=== PATIENT | female | born 1965 | race Caucasian/White ===

== ENCOUNTER 2024-09-17 23:46 | Emergency (ER) | payer SELFPAY ==
--- OUTSIDE RECORDS SUMMARY | 2024-09-17 23:48 | XMS_ITS | Clinical Summary ---
Author Organization [facility] Address [address] [place] [address] Care Team Providers Care Park Guide Name Role Phone Josias Portillo MD Primary Care Provider [phone] Allergies Active Allergy Reactions Criticality Noted Date Comments Seasonal Allergies 02/01/2003 Medications Cholecalciferol (VITAMIN D) 125 MCG (5000 UT) CAPS Take 5,000 Units by mouth daily 100 tablet 3 10/20/2013 Active ibuprofen (ADVIL/MOTRIN) 200 MG tablet Take 200 mg by mouth once as needed for mild pain Active Joppa-3 Fatty Acids (FISH OIL PO) Take 1 capsule by mouth daily Active cyclobenzaprine (FLEXERIL) 10 MG tabletIndicatio ns:Open fracture of multiple ribs of left side, initial encounter Take 1 tablet (10 mg) by mouth 3 times daily 20 tablet 04/01/2020 Active oxyCODONE (ROXICODONE) 5 MG tabletIndicatio ns:Open fracture of multiple ribs of left side, initial encounter Take 1 tablet (5 mg) by mouth every 4 hours as needed for moderate to severe pain 12 tablet 04/01/2020 Active Active Problems Problem Noted Date Diagnosed Date Rib fractures 03/31/2020 Pleural hemorrhage 03/31/2020 Adrenal adenoma, unspecified laterality 03/31/20 20 Closed fracture of multiple ribs of left side, initial encounter 03/31/2020 Fall, initial encounter 03/31/2020 Nephrolithiasis 02/15/2011 Family history of ischemic heart disease 011 CARDIOVASCULAR SCREENING; LDL GOAL LESS THAN 160 03/05/2010 Migraine 10/12/2002 Overview (02/03/2015): Problem list name updated by automated process. Provider to review Immunizations Immunization Administration Dates Next Due TDAP (Adacel,Boostrix) 04/15/2008 Family History Medical History Relation Comments Heart Disease Father 42, unclear C.A.D. Maternal Grandmother Heart Disease Maternal Grandmother has pacemak er C.A.D. Mother 42, Relation Status Comments Brother Alive Father Maternal Grandfather Maternal Grandmother Alive Mother Alive Paternal Grandfather Paternal Grandmother Social History Tobacco Use Types Packs/Day Years Used Date Smoking Tobacco: Never Alcohol Use Standard Drinks/Week Comments No 0 (1 standard drink = 0.6 oz pur e alcohol) wine once in a while PHQ-2 Answer Date Recorded PHQ-2 Score 0 05/13/2018 Adolescent Education Answer Date Record ed Getting School Help Needed Not on file 02/10 Comments No Sex and Gender Information Value Date Recorded Sex Assigned at Not on file Legal Sex Female 3:52 AM SAW FILER Gender Identity Not on file Sexual Orientation Not on file Occupation Industry Job Start Date Job End Date Not on file Not on file Not on file Not on file Last Filed Vital Signs Vital Sign Reading Time Taken Comments Blood Pressure 113/77 04/01/2020 1:54 PM SAW FILER Pulse 88 04/01/2020 1:54 PM SAW FILER Temperature 37 C (98.6 F) 04/01/2020 1:54 PM SAW FILER Respiratory Rate 16 04/01/2020 1:54 PM SAW FILER Oxygen Saturation 99% 04/01/2020 1:54 PM SAW FILER Inhaled Oxygen Concentration - - Weight 63.5 kg (140 lb) 03/31/2020 11:12 AM SAW FILER Height 162.6 cm (5' 4) 03/31/2020 11:12 AM SAW FILER Body Mass Index 24.03 03/31/2020 11:12 AM SAW FILER Plan of Treatment Not on file Advance Directives For more information, please contact: [phone] * Full Code (Latest Code Status on File) Date Activated Date Inactivated Comments 03/31/2020 10:05 PM 04/01/2020 4:44 PM All basic and advanced life-sustaining interventions are performed as appropriate Question Answer Comments Code status determined by: Discussion with patie nt/ legal decision maker Care Teams Park Guide Relationship Specialty Start Date End Date Josias Portillo MD [facility] [address] [address] PCP - General Internal Medicine 03/31/20
--- OUTSIDE RECORDS SUMMARY | 2024-09-17 23:48 | XMS_ITS | Clinical Summary ---
Author Organization [facility] Address [address] [place] [address] Care Team Providers Care Curriculum Specialist Name Role Phone Kaelyn Lockwood MD Primary Care Provider [phone] Kaelyn Lockwood MD Unavailable [phone] Allergies No known active allergies Medications No known medications Family History Medical History Relation Name Comments Cancer-breast Maternal Aunt mothers half sister Relation Name Status Comments Maternal Aunt Social History Tobacco Use Types Packs/Day Years Used Date Smoking Tobacco: Never Smokeless Tobacco: Never Comments No Sex and Gender Information Value Date Recorded Sex Assigned at Not on file Legal Sex Female 5:02 PM CDT Gender Identity Not on file Sexual Orientation Not on file Obstetrics History Last Filed Vital Signs Vital Sign Reading Time Taken Comments Blood Pressure 106/58 03/11/2015 9:36 AM CRUCIBLE FURNACE TENDER Pulse 60 03/11/2015 9:36 AM CRUCIBLE FURNACE TENDER Temperature - - Respiratory Rate - - Oxygen Saturation - - Inhaled Oxygen Concentration - - Weight 61.3 kg (135 lb 3.2 oz) 03/11/2015 9:36 A M CRUCIBLE FURNACE TENDER Height 161.3 cm (5' 3.5) 03/11/2015 9:36 AM CRUCIBLE FURNACE TENDER Body Mass Index 23.57 03/11/2015 9:36 AM CRUCIBLE FURNACE TENDER Plan of Treatment Health Maintenance Due Date Last Done Comments Tdap 10/15/1975 Depression screening for age 12+ 1976 HIV for age 15-65 10/15/1979 BMI (ht and wt on same day) for age 18+ 1982 Hepatitis C screening for age 18-79 1982 Tetanus booster 1984 Pap test for age 21-65 1985 Colonoscopy through age 75 2009 Lipids for age 45-75 2009 Pneumococcal series for age 50+ (1 of 1 - PCV) 015 Zoster (shingles) series for age 50+ (1 of 2) 10/15/19 15 Mammogram for age 45-75 03/11/2016 03/11/2015 COVID-19 vaccine series (1 - 2023- season) Influenza Vaccine (Season Ended) 2025 Procedures Procedure Name Priority Date/Time Associated Diagnosis Comments XR FFDM MAMMO SCREENING BILATERAL SSP (IA) Routine 03/11/2015 9:30 AM CRUCIBLE FURNACE TENDER Other screening mammogram from Last 3 Months or Most Recently Relevant to Health Maintenance Results * XR FFDM MAMMO SCREENING BILATERAL SSP (03/11/2015 9:30 AM CRUCIBLE FURNACE TENDER) Anatomical Region Laterality Modality BREASTS, Breast Left, Breast Right Bilateral Mammography Impressions 03/11/2015 12:02 PM CRUCIBLE FURNACE TENDER There is no radiographic evidence for malignancy. Recommend annual mammograms. A lay language report of this examination will be provided to the patient. MAMMOGRAM ASSESSMENT: ACR 1 Negative Narrative 03/11/2015 12:02 PM CRUCIBLE FURNACE TENDER XR FFDM MAMMO SCREENING BILATERAL SSP [G0202.6] CLINICAL HISTORY: This is an asymptomatic 49 y.o. patient. INDICATION FOR EXAM: Mammogram Screening. TECHNIQUE: CC & MLO views were obtained. This digital study was evaluated with the assistance of Computer-Aided Detection. COMPARISON FILM: Priors not available at the time of this report. FINDINGS: Mammographically, the breast tissue is heterogeneously dense, which could obscure detection of small masses. There are no dominant masses, suspicious micro calcifications or areas of architectural distortion. Kaelyn Lockwood MD MAMMO Final Res ult from Last 3 Months or Most Recently Relevant to Health Maintenance Insurance [employer] [place] [place] [phone] Care Teams Curriculum Specialist Relationship Specialty Start Date End Date Kaelyn Lockwood MD [address] [place] [address] PCP - General Family Practice 02/28/15 Kaelyn oLckwood MD [address] [place] [address] Family Practice 02/28/15
--- OUTSIDE RECORDS SUMMARY | 2024-09-17 23:48 | XMS_ITS | Encounter Summary ---
Author Organization [facility] Address [address] [place] [address] Care Team Providers Care Small Stock Facer Name Role Phone Lisa Kent MD Primary Care Provider + Willam Robertson MD Unavailable [phone] Willam Robertson MD Unavailable [phone] Maria Esther Guzman MD Unavailable Unavailable Willam Robertson MD Unavailable [phone] Maria Esther Guzman MD Unavailable Unavailable Josias Portillo MD Primary Care Provider [phone] Encounter Details Date Type Department Care Team (Late st Contact Info) Description 11/14/2016 [facility] Medical Advice [address] [address] Sherin Candelaria Social History Tobacco Use Types Packs/Day Years Used Date Smoking Tobacco: Never Alcohol Use Standard Drinks/Week Comments No 0 (1 standard drink = 0.6 oz pur e alcohol) wine once in a while Comments No Sex and Gender Information Value Date Recorded Sex Assigned at Not on file Legal Sex Female 3:52 AM SAIL CUTTER Gender Identity Not on file Sexual Orientation Not on file Occupation Industry Job Start Date Job End Date Not on file Not on file Not on file Not on file documented as of this encounter Plan of Treatment Not on file documented as of this encounter Visit Diagnoses Not on filedocumented in this encounter Care Teams Small Stock Facer Relationship Specialty Start Date End Date Lisa Kent MD [address] [address] PCP - General respiratory practitioner 02/16/14 03/30/20 Willam Robertson MD [address] [place] [address] PCP - Assigned PCP 08/19/16 07/08/18 Josias Portillo MD [facility] [address] [facility] [address] [facility] [address] [address] PCP - General Internal Medicine 03/31/20 Willam Robertson MD [address] [place] [address] [place] [address] Assigned PCP 08/19/16 02/21/19 Maria Esther Guzman MD Assigned PCP 02/22/19 05/23/19 Willam Robertson MD [address] [place] [address] Assigned PCP 05/24/19 07/11/19 Maria Esther Guzman MD Assigned PCP 07/12/19 08/15/19 documented as of this encounter
--- OUTSIDE RECORDS SUMMARY | 2024-09-17 23:48 | XMS_ITS | Encounter Summary ---
Author Organization [facility] Address [address] [place] [address] Care Team Providers Care Receiving Inspector Name Role Phone Lisa Kent MD Primary Care Provider + Willam Robertson MD Unavailable [phone] Willam Robertson MD Unavailable [phone] Maria Esther Guzman MD Unavailable Unavailable Willam Robertson MD Unavailable [phone] Maria Esther Guzman MD Unavailable Unavailable Josias Portillo MD Primary Care Provider [phone] Encounter Details Date Type Department Care Team (Late st Contact Info) Description 12/18/2017 [facility] Medical Advice [facility] Centralized Scheduling [facility] [place] [phone] Mariangel Vasquez Social History Tobacco Use Types Packs/Day Years Used Date Smoking Tobacco: Never Alcohol Use Standard Drinks/Week Comments No 0 (1 standard drink = 0.6 oz pur e alcohol) wine once in a while Comments No Sex and Gender Information Value Date Recorded Sex Assigned at Not on file Legal Sex Female 3:52 AM LEATHER PRODUCTS SUPERVISOR Gender Identity Not on file Sexual Orientation Not on file Occupation Industry Job Start Date Job End Date Not on file Not on file Not on file Not on file documented as of this encounter Plan of Treatment Not on file documented as of this encounter Visit Diagnoses Not on filedocumented in this encounter Care Teams Receiving Inspector Relationship Specialty Start Date End Date Lisa Kent MD [address] [place] [address] PCP - General direct sales representative 02/16/14 03/30/20 Willam Robertson MD [address] [place] [address] PCP - Assigned PCP 08/19/16 07/08/18 Josias Portillo MD [facility] [address] [place] [address] PCP - General Internal Medicine 03/31/20 Willam Robertson [facility] [place] [address] [place] [address] Assigned PCP 08/19/16 02/21/19 Maria Esther Guzman MD Assigned PCP 02/22/19 05/23/19 Willam Robertson MD [address] [place] [address] Assigned PCP 05/24/19 07/11/19 Maria Esther Guzman MD Assigned PCP 07/12/19 08/15/19 documented as of this encounter
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
--- OUTSIDE RECORDS SUMMARY | 2024-09-17 23:49 | XMS_ITS ---
Author Name [id number] Address [address] [facility] [address] [address] Organization [facility] Address [address] [facility] [address] [address] Care Team Providers Care Director Insurance Name Role Phone Shree Morillo Unavailable Unavailable Allergies and Adverse Reactions Medication/Group Name Reaction Severity Date No known allergies Plan Date Type Value 04/25/2020 APPOINTMENT GIRL FRIDAY - 66 DISPLACE D RIBS, CT FV - 66 DISPLACED RIBS, CT FV 04/25/2020 APPOINTMENT GIRL FRIDAY - 66 DISPLACE D RIBS - 66 DISPLACED RIBS Reason for Visit GIRL FRIDAY - 66 DISPLACED RIBS - 66 DISPLACED RIBS Encounters Date Name 04/25/2020 Multiple rib fractur es Medications Date Name Route Dose Frequency Instructions Start Date End Date Status Oxycodone Oral ac tive Cyclobenzaprine Oral active Ibuprofen Oral ac tive Problems Diagnosis Status Date of Diagnosi s Multiple rib fractures Active Vital Signs Date Type Value 04/25/2020 Weight 152.00 04/25/2020 Heart Beat 121.00 04/25/2020 Respiratory Rate 16.00 04/25/2020 Oxygen Saturation 95.00 04/25/2020 Body Temperature 97.50 04/25/2020 Pain Scale 4.00 04/25/2020 Height 64.50 04/25/2020 BMI 25.69 04/25/2020 BSA 1.75 04/25/2020 Intravascular Systolic 110 04/25/2020 Intravascular Diastolic 78
--- OUTSIDE RECORDS SUMMARY | 2024-09-17 23:50 | XMS_ITS | Patient Health Record ---
Author Organization [facility] Address [address] [place] [address] Care Team Providers Care Inside Sales Account Representative Name Role Phone None, No PCP Primary Care Provider Keven Payne Flory Unavailable [phone] Allergies No Known Allergies Reason For Referral No Information Immunizations Vaccine Route Administration Date Status Comme nts TDAP VACCINE >7 IM IM Intramuscular 05/08/2022 Administere d Social History Tobacco Use: Social History Observation Description Date Details (start date - stop date) Never Smoker NA - NA Tobacco Use/Smoking Question Answer Notes Are you a nonsmoker Additional Findings: Tobacco Non-User Non-smoker for personal reasons Sexual History Question Answer Notes Had sex in the past 12 months (vaginal, oral, or anal)? Yes with Men only Use protection? No Have you ever had a Sexually transmitted disease ? No Tobacco use other than smoking: Question Answer Notes Are you an other tobacco user? No Problems Problem Type SNOMED Code ICD Code Onset Dates Problem Status W/U Status Risk Notes Problem [id number] Overweight (BMI 25.0-29.9) (E66.3) Active confirmed Problem 813844804 Elevated LDL cholesterol level (E78.00) Active confirmed Problem 59842723 Elevated cholesterol (E78.00) Active confirmed Problem Benign essential hypertension (7864813) Benign essential hypertension (I10) Active confirmed Problem 500367575 Stage 1 hypertension (I10) Active confirmed Plan Of Treatment No Information Insurance Providers Payer Name Payer Address Payer Phone Subscriber Number Group Number Insured Name Patient Relationship to Insured Coverage Start Date Coverage End Date Self Pay [address] [place] [id number] [phone] [id number] Lynda Au Self - patient is the insured Medical (General) History Medical History History ICD Code abnormal pap smear bladder infections Chicken Pox migraines Pneumonia Surgical History Surgery Date(Month/Year) ovarian cyst resection 1989
--- OUTSIDE RECORDS SUMMARY | 2024-09-17 23:50 | XMS_ITS | CCD ---
Author Name Interface, [facility] Address [address] [place] [address] [facility] Address [address] [place] [address] Care Team Providers Care Soyfreeze Operator Name Role Phone Shree Morillo Unavailable Unavailable Allergies and Adverse Reactions Reason for Visit Encounters Medications Problems Social History
[2024-09-17 23:52] VITALS: BP 162/91; PULSE 98; RESP 18; TEMP 36.7; O2SAT 97; BMI 24.1
--- NOTE | 2024-09-17 23:52 | ED_ITS ---
HPI - Abdominal Pain General Chief Complaint: Abdominal Pain Stated Complaint: abdominal pain Time Seen by Provider: 09/17/24 23:48 History of Present Illness HPI narrative: Patient is a 58-year-old woman who has history of gastritis presents with worsening diffuse abdominal pain over the last several days. She did have normal bowel movement earlier today. She really has had no appetite. She is not passing any gas. She has no reflux symptoms. No chest pain no shortness of breath no nausea no vomiting. Patient takes occasional Tagamet but otherwise takes no home medications. She is not able to identify any other aggravating or alleviating factors. Pain is moderate and a burning. Related Data Home Medications ?Medication ?Instructions ?Recorded ?Confirmed No Known Home Medications 09/17/24 09/17/24 Allergies Allergy/AdvReac Type Severity Reaction Status Date / Time No Known Drug Allergies Allergy Verified 09/17/24 23:54 Review of Systems Status of ROS Reports: 10 or more systems reviewed and unremarkable except as noted in History and below [facility] Medical History (Updated 09/18/24 @ 01:03 by Stephon Kessler MD) Kidney stones ?N20.0 - Calculus of kidney (ICD-10) Gastritis ?K29.70 - Gastritis, unspecified, without bleeding (ICD-10) Surgical History (Updated 09/18/24 @ 00:09 by Huan Burroughs RN) History of laparoscopy ?Z98.890 - Other specified postprocedural states (ICD-10) History of shoulder surgery ?Z98.890 - Other specified postprocedural states (ICD-10) Social History Smoking Status: Never smoker Second hand tobacco smoke exposure: No How often do you have a drink containing alcohol: never AUDIT-C Alcohol total score: 0 Non-prescribed substance use: denies use Exam Narrative: Exam Narrative: EXAM GENERAL: Patient appears comfortable and well. EYES: No scleral icterus. LYMPH: No supraclavicular or cervical lymphadenopathy. SKIN: Visible skin seen during exam normal or with benign process only. EXT: No dependent lower extremity pedal edema. HEART: Regular rate and rhythm with no murmurs, rubs, or gallops. LUNGS: Clear to auscultation bilaterally with no crackles or wheezes. ABD: Soft, non tender, non distended. PSYCH: Good eye contact, speech is not pressured. Const: Vital Signs, click to edit/add: Vital Signs - 24 hr 09/17/24 23:52 Temperature 98.1 F Pulse Rate [Pulse Oximeter] 98 Respiratory Rate 18 Blood Pressure [Le ft Upper Arm] 162/91 H Pulse Oximetry 97 Oxygen Delivery Me thod Room Air Course Course ED Course: IV started. CT abdomen pelvis with IV contrast CBC comprehensive metabolic panel lipase UA pending. Vital Signs Vital signs: Initial Vital Signs Temperature 98.1 F 09/17/24 23:52 Temperature Source Temporal Artery Scan 09/17/24 23:52 Pulse Rate 98 09/17/24 23:52 Respiratory Rate 18 09/17/24 23:52 Blood Pressure 162/91 H 09/17/24 23:52 Blood Pressure Mean 114 H 09/17/24 23:52 Blood Pressure Position Sitting 09/17/24 23:52 Pulse Oximetry 97 09/17/24 23:52 Oxygen Delivery Method Room Air 09/17/24 23:52 Vital Signs Temperature 98.1 F 09/17/24 23:52 Pulse Rate 98 09/17/24 23:52 Respiratory Rate 18 09/17/24 23:52 Blood Pressure 162/91 H 09/17/24 23:52 Pulse Oximetry 97 09/17/24 23:52 Oxygen Delivery Method Room Air 09/17/24 23:52 Temperature 98.1 F 09/17/24 23:52 Pulse Rate 98 09/17/24 23:52 Respiratory Rate 18 09/17/24 23:52 Blood Pressure 162/91 H 09/17/24 23:52 Pulse Oximetry 97 09/17/24 23:52 Oxygen Delivery Method Room Air 09/17/24 23:52 MDM - Abdominal Pain MDM Narrative Medical decision making narrative: Pre some presents with abdominal pain diffusely. She has history of gastritis. Workup is unremarkable with the exception of adrenal nodule which will require outpatient follow-up. Patient has normal laboratory studies. At this point the differential diagnosis includes a irritable bowel gastritis gastric ulcer cholecystitis. I did place her on a 2 week course of omeprazole 20 mg 1/2 hour before breakfast. Limit caffeine. Follow-up with her primary physician as needed as well as for follow-up scheduled on the adrenal nodule. Lab Data Labs: Lab Results 09/17/24 09/17/24 Range/Units 00:03 23:55 WBC 8.57 (4.50-11.00) K/uL RBC 4.96 (4.00-5.20) m/uL Hgb 15.4 (12.0-16.0) gm/dL Hct 45.4 (33.0-51.0) % MCV 92 (80-100) fL MCH 31 (26-34) pg MCHC 34 (32-36) gm/dL RDW Coeff of Gabby 12.7 (11.5-15.5) % Plt Count 257 (140-440) K/uL Neut % (Auto) 49.2 (42.0-72.0) % Lymph % (Auto) 39.1 (20-44) % [place] % (Auto) 6.5 (0.0-11.0) % Eos % (Auto) 4.1 (0.0-7.0) % Baso % (Auto) 0.6 (0.0-3.0) % Neut # (Auto) 4.22 (1.7-7.0) K/uL Lymph # (Auto) 3.35 H (0.90-2.90) K/uL [place] # (Auto) 0.60 (0.00-0.90) K/UL Eos # (Auto) 0.35 (0.00-0.50) K/uL Baso # (Auto) 0.05 (0.00-0.30) K/uL Abs Immat Gran (auto) 0.04 (0.00-0.30) K/uL Imm/Tot Granulo (auto) 0.5 % Sodium 141 (135-149) mmol/L Potassium 4.0 (3.6-5.1) mmol/L Chloride 103 (96-114) mmol/L Carbon Dioxide 27 (20-32) mmol/L Anion Gap 11 (7-15) mEq/L BUN 19 (7-30) mg/dL Creatinine 0.9 (0.5-1.5) mg/dL Estimated Creat Clear 60.56 Estimated GFR 74 ml/min Glucose 119 H (60-115) mg/dL Calcium 9.8 (8.4-10.6) mg/dL Total Bilirubin 0.7 (0.1-1.5) mg/dL AST 29 (12-35) U/L ALT 19 (4-35) U/L Alkaline Phosphatase 49 (40-150) U/L Total Protein 7.9 (6.0-8.3) g/dL Albumin 5.0 (3.3-5.0) g/dL Lipase 77 (23-300) U/L Urine Color Yellow (Yellow) Urine Appearance Clear (Clear) Urine pH 7.0 (5.0-8.5) Ur Specific [place] 1.015 (1.000-1.030) Urine Protein Negative (Negative) Urine Glucose (UA) Negative (Negative) Urine Ketones Trace A (Negative) Urine Blood Negative (Negative) Urine Nitrite Negative (Negative) Urine Bilirubin Negative (Negative) Urine Urobilinogen 0.2 (0.2-1.0) Ur Leukocyte Esterase Trace A (Negative) Urine RBC 0-2 (0-2) Urine WBC 0-2 (0-5) Ur Squamous Epith Cells None (None-Few) Urine Bacteria None (None) Discharge Plan Discharge Clinical Impression: Abdominal pain Patient Disposition: Home, Self-Care Condition: Stable Instructions: Abdominal Pain (ED) Additional Instructions: Omeprazole over the counter 20 mg 1/2 hour before breakfast for 2 weeks Follow up with your doctor to discuss adrenal nodule follow up. Activity Level: No Restrictions Discharge Diet: Regular Prescriptions: No Action No Known Home Medications Follow Up/Referrals: Josias Portillo MD [Primary Care Provider] - Stand Alone Forms: [employer] Info Instructions
--- NOTE | 2024-09-18 | CRLHL7_ITS ---
For Patients: As a result of the Cures Act, medical imaging exams and procedure reports are released immediately into your electronic medical record. You may view this report before your referring provider. If you have questions, please contact your health care provider. INDICATION: Abdominal pain TECHNIQUE: CT Abdomen and pelvis with i.v. contrast. Coronal and sagittal reformats were obtained. CONTRAST: 71 mL Isovue 370 COMPARISON: None FINDINGS: Lower chest: Unremarkable. Liver: Unremarkable. Spleen: Unremarkable. Pancreas: Unremarkable. Gallbladder: Unremarkable. Kidney: Unremarkable. No kidney or ureteral stones or obstruction seen. Adrenal: A left adrenal nodule is present measuring 1.2 cm. Bowel: Mild fluid distention of the stomach is noted. The appendix is normal in appearance and size. Vascular: Unremarkable. Lymph: Unremarkable. Peritoneum: Unremarkable. No pneumoperitoneum is seen. No significant ascites is noted. Pelvis: Several coarse calcifications are present in the anterior lower uterine segment which may be due to calcified fibroids. Soft tissue: Unremarkable. Bone: Unremarkable for age. IMPRESSION: 1. A left adrenal nodule is present measuring 1.2 cm. Correlation with patient`s history and laboratory data is recommended to determine the hormone activity level of this lesion. Dictated by Marcin Price MD @ 09/18/2024 12:49:42 AM Please note that all CT scans at this facility use dose modulation, iterative reconstruction, and/or weight-based dosing when appropriate to reduce radiation dose to as low as reasonably achievable. Dictated by: Marcin Price MD @ 09/18/2024 00:53:36 (Electronically Signed)
[2024-09-18 00:12] LABS: Basophils Absolute Auto 0.05 K/uL (0.00-0.30); Basophils Percent Auto 0.6 % (0.0-3.0); Eosinophils Absolute Auto 0.35 K/uL (0.00-0.50); Eosinophils Percent Auto 4.1 % (0.0-7.0); Hematocrit 45.4 % (33.0-51.0); Hemoglobin* 15.4 gm/dL (12.0-16.0); Immature Granulocytes Abs Auto 0.04 K/uL (0.00-0.30); Immature Granulocytes Pct Auto 0.5 %; Lymphocytes Absolute Auto 3.35 K/uL (0.90-2.90); Lymphocytes Percent Auto 39.1 % (20-44); Mean Corpuscular HGB Conc 34 gm/dL (32-36); Mean Corpuscular Hemoglobin 31 pg (26-34); Mean Corpuscular Volume 92 fL (80-100); Monocytes Percent Auto 6.5 % (0.0-11.0); Neutrophils Absolute Auto 4.22 K/uL (1.7-7.0); Neutrophils Percent Auto 49.2 % (42.0-72.0); Platelet Count* 257 K/uL (140-440); RDW Coefficient of Variation % 12.7 % (11.5-15.5); Red Blood Count 4.96 m/uL (4.00-5.20); White Blood Count* 8.57 K/uL (4.50-11.00)
[2024-09-18 00:15] LABS: Appearance Urine Clear (Clear); Bilirubin Urine Negative (Negative); Blood Urine Negative (Negative); Color Urine Yellow (Yellow); Glucose Urine Negative (Negative); Ketones Urine Trace (Negative); Leukocyte Esterase Urine Trace (Negative); Nitrite Urine Negative (Negative); Protein Urine Negative (Negative); Specific Gravity Urine 1.015 (1.000-1.030); Urobilinogen Urine 0.2 (0.2-1.0)
--- OUTSIDE RECORDS SUMMARY | 2024-09-18 00:20 | XMS_ITS | Clinical Summary ---
Author Organization [facility] Address [address] [place] [address] Care Team Providers Care Supervisor Screen Printing Name Role Phone Kaelyn Lockwood MD Primary Care Provider [phone] Kaelyn Lockwood MD Unavailable [phone] Allergies No known active allergies Medications No [...] Comments Blood Pressure 106/58 03/11/2015 9:36 AM BRIDGE PAINTER Pulse 60 03/11/2015 9:36 AM BRIDGE PAINTER Temperature - - Respiratory Rate - - Oxygen Saturation - - Inhaled Oxygen Concentration - - Weight 61.3 kg (135 lb 3.2 oz) 03/11/2015 9:36 A M BRIDGE PAINTER Height 161.3 cm (5' 3.5) 03/11/2015 9:36 AM BRIDGE PAINTER Body Mass Index 23.57 03/11/2015 9:36 AM BRIDGE PAINTER Plan of Treatment Health Maintenance Due Date [...] BILATERAL SSP (IA) Routine 03/11/2015 9:30 AM BRIDGE PAINTER Other screening mammogram from Last 3 Months or Most Recently Relevant to Health Maintenance Results * XR FFDM MAMMO SCREENING BILATERAL SSP (03/11/2015 9:30 AM BRIDGE PAINTER) Anatomical Region Laterality Modality BREASTS, Breast Left, Breast Right Bilateral Mammography Impressions 03/11/2015 12:02 PM BRIDGE PAINTER There is no radiographic evidence for malignancy. Recommend annual mammograms. A lay language report of this examination will be provided to the patient. MAMMOGRAM ASSESSMENT: ACR 1 Negative Narrative 03/11/2015 12:02 PM BRIDGE PAINTER XR FFDM MAMMO SCREENING BILATERAL SSP [G0202.6] [...] Relevant to Health Maintenance Insurance [employer] [place] [phone] Care Teams Supervisor Screen Printing Relationship Specialty Start Date End Date Kaelyn Lockwood MD [address] [place] [address] PCP - General Family Practice 02/28/15 Kaelyn Lockwood MD [address] [place] [address] Family Practice 02/28/15
--- OUTSIDE RECORDS SUMMARY | 2024-09-18 00:21 | XMS_ITS | Clinical Summary ---
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 Gender Identity Not on file Sexual Orientation Not on file Occupation Industry Job Start Date Job End Date Not on file Not on file Not on file Not on file Last Filed Vital Signs Vital Sign Reading Time Taken Comments Blood Pressure 113/77 04/01/2020 1:54 PM OXIDIZED FINISH PLATER Pulse 88 04/01/2020 1:54 PM OXIDIZED FINISH PLATER Temperature 37 C (98.6 F) 04/01/2020 1:54 PM OXIDIZED FINISH PLATER Respiratory Rate 16 04/01/2020 1:54 PM OXIDIZED FINISH PLATER Oxygen Saturation 99% 04/01/2020 1:54 PM OXIDIZED FINISH PLATER Inhaled Oxygen Concentration - - Weight 63.5 kg (140 lb) 03/31/2020 11:12 AM OXIDIZED FINISH PLATER Height 162.6 cm (5' 4) 03/31/2020 11:12 AM OXIDIZED FINISH PLATER Body Mass Index 24.03 03/31/2020 11:12 AM OXIDIZED FINISH PLATER Plan of Treatment Not on file Advance Directives For more information, please contact: [phone] * Full Code (Latest Code Status on File) Date Activated Date Inactivated Comments 03/31/2020 10:05 PM 04/01/2020 4:44 PM All basic and advanced life-sustaining interventions are performed as appropriate Question Answer Comments Code status determined by: Discussion with patie nt/ legal decision maker Care Teams Buying Intern Relationship Specialty Start Date End Date Josias Portillo MD [facility] [address] [address] PCP - General Internal Medicine 03/31/20
--- OUTSIDE RECORDS SUMMARY | 2024-09-18 00:21 | XMS_ITS | Encounter Summary ---
Author Organization [facility] Address [address] [place] [address] Care Team Providers Care Clinic Mgr Name Role Phone Lisa Kent MD Primary Care Provider + Willam Robertson MD Unavailable [phone] Willam Robertson MD Unavailable [phone] Maria Esther Guzman MD Unavailable Unavailable Willam Robertson MD Unavailable [phone] Maria Esther Guzman MD Unavailable Unavailable Josias Portillo MD Primary Care Provider [phone] Encounter Details Date Type Department Care Team (Late st Contact Info) Description 12/18/2017 MyC Medical Advice [facility] Centralized Scheduling [facility] [place] [phone] Mariangel Vasquez Social History Tobacco Use Types Packs/Day Years Used Date Smoking Tobacco: Never Alcohol Use Standard Drinks/Week Comments No 0 (1 standard drink = 0.6 oz pur e alcohol) wine once in a while Comments No Sex and Gender Information Value Date Recorded Sex Assigned at Not on file 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 Gender Identity Not on file Sexual Orientation Not on file Occupation Industry Job Start Date Job End Date Not on file Not on file Not on file Not on file documented as of this encounter Plan of Treatment Not on file documented as of this encounter Visit Diagnoses Not on filedocumented in this encounter Care Teams Clinic Mgr Relationship Specialty Start Date End Date Lisa Kent MD [address] [place] [address] PCP - General jig inspector 02/16/14 03/30/20 Willam Robertson MD [address] [place] [address] PCP - Assigned PCP 08/19/16 07/08/18 Josias Portillo MD [facility] [address] [place] [address] [place] [address] PCP - General Internal Medicine 03/31/20 Willam Robertson MD [address] [place] [address] Assigned PCP 08/19/16 02/21/19 Maria Esther Guzman MD Assigned PCP 02/22/19 05/23/19 Willam Robertson MD [address] [place] [address] Assigned PCP 05/24/19 07/11/19 Maria Esther Guzman MD Assigned PCP 07/12/19 08/15/19 documented as of this encounter
--- OUTSIDE RECORDS SUMMARY | 2024-09-18 00:21 | XMS_ITS | CCD ---
Author Name Interface, [id number] lity Address [address] [place] [address] [facility] Address [address] [place] [address] Care Team Providers Care Historic Site Administrator Name Role Phone Shree Morillo Unavailable Unavailable Allergies and Adverse Reactions Reason for Visit Encounters Medications Problems Social History
[2024-09-18 00:22] LABS: RBC Urine 0-2 (0-2); WBC Urine 0-2 (0-5)
--- OUTSIDE RECORDS SUMMARY | 2024-09-18 00:22 | XMS_ITS ---
Author Name Interface, [id number] lity Address [address] [facility] [address] [address] Organization [facility] Address [address] [facility] [address] [address] Care Team Providers Care Manager Pulmonary Name Role Phone Shree Morillo Unavailable Unavailable Allergies and Adverse Reactions Medication/Group Name Reaction Severity Date No known allergies Plan Date Type Value 04/25/2020 APPOINTMENT RADIOSONDE SPECIALIST - 66 DISPLACE D RIBS, CT FV - 66 DISPLACED RIBS, CT FV 04/25/2020 APPOINTMENT RADIOSONDE SPECIALIST - 66 DISPLACE D RIBS - 66 DISPLACED RIBS Reason for Visit RADIOSONDE SPECIALIST - 66 DISPLACED RIBS - 66 DISPLACED RIBS Encounters Date Name 04/25/2020 Multiple rib fractur es Medications Date Name Route Dose Frequency Instructions Start Date End Date Status Ibuprofen Oral ac tive Cyclobenzaprine Oral active Oxycodone Oral ac tive Problems Diagnosis Status Date [...]
--- OUTSIDE RECORDS SUMMARY | 2024-09-18 00:22 | XMS_ITS | Encounter Summary ---
Author Organization [facility] Address [address] [place] [address]. [place] [address] Care Team Providers Care Automatic Presser Name Role Phone Lexx Shelton MD Primary Care Provider UnavailLisa Huggins MD Primary Care Provider + Willam Robertson MD Unavailable [phone] Willam Robertson MD Unavailable [phone] Lexx Guzman MD Unavailable Unavailable Willam Robertson MD Unavailable [phone] Lexx Guzman MD Unavailable Unavailable Josias Portillo MD Primary Care Provider [phone] Encounter Details Date Type Department Care Team (Late st Contact Info) Description 05/05/2007 Office Visit-[facility] [address] [place] [address] Maxim Abreu MD [address] [place] [address] [address] [place] [address] Social History Tobacco Use Types Packs/Day Years Used Date Smoking Tobacco: Never Alcohol Use Standard Drinks/Week Comments Yes 0 (1 standard drink = 0.6 oz pur e alcohol) wine once in a while Comments No Sex and Gender Information Value Date Recorded Sex Assigned at Not on file 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 DATE: 05/05/2007 DYLAN AU DATE OF : 1965 AGE: [age] years old Referring Physician: LEXX SHELTON Referring Clinic: [id number] CURRENT DIAGNOSES 1. - Hypercholesterolemia, 272.0 2. Family History-Ischemic Heart Disease, V17.3 ALLERGIES NKA MEDICATIONS (prior to changes made today) 1. Ibuprofen 200 mg, PRN CHIEF COMPLAINTS ELEVATED CRP/CARDIAC FAMILY HX HISTORY OF PRESENT ILLNESS I had the pleasure and opportunity of seeing your patient, Dylan Au, in consultation today on May 05, 2007. 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; Residence - lives with and lives in [place] year round; Place of - [place]; Hours Worked - 40 hours per week; [...] on filedocumented in this encounter Care Teams Automatic Presser Relationship Specialty Start Date End Date Lexx Shelton MD [place] IN [place] 04/04/2024 PCP - General 01/16/05 02/15/14 Lisa Kent MD [address] [place] [address] PCP - General doweling machine operator 02/16/14 03/30/20 [place] [address] [place], [place] [address] [address] PCP - Assigned PCP 08/19/16 07/08/18 Josias Portillo MD [facility] [address] [facility] [address] [place] [address] PCP - General Internal Medicine 03/31/20 Willam Robertson MD [address] [address] Assigned PCP 08/19/16 02/21/19 Lexx Guzman MD Assigned PCP 02/22/19 05/23/19 Willam Robertson MD [address] [place] [address] [place] [address] Assigned PCP 05/24/19 07/11/19 Lexx Guzman MD Assigned PCP 07/12/19 08/15/19 documented as of this encounter
--- OUTSIDE RECORDS SUMMARY | 2024-09-18 00:22 | XMS_ITS | Encounter Summary ---
Author Organization [facility] Address [address] [place] [address] Care Team Providers Care Applications Consultant Name Role Phone Lisa Kent MD Primary Care Provider + Willam Rboertson MD Unavailable [phone] Willam Robertson MD Unavailable [phone] Maria Esther Guzman MD Unavailable Unavailable Willam Robertson MD Unavailable [phone] Maria Esther Guzman MD Unavailable Unavailable Josias Portillo MD Primary Care Provider [phone] Encounter Details Date Type Department Care Team (Late st Contact Info) Description 11/14/2016 MyC Medical Advice [address] [address] Sherin Candelaria Social History Tobacco Use Types Packs/Day Years Used Date Smoking Tobacco: Never Alcohol Use Standard Drinks/Week Comments No 0 (1 standard drink = 0.6 oz pur e alcohol) wine once in a while Comments No Sex and Gender Information Value Date Recorded Sex Assigned at Not on file 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 Gender Identity Not on file Sexual Orientation Not on file Occupation Industry Job Start Date Job End Date Not on file Not on file Not on file Not on file documented as of this encounter Plan of Treatment Not on file documented as of this encounter Visit Diagnoses Not on filedocumented in this encounter Care Teams Applications Consultant Relationship Specialty Start Date End Date Lisa Kent MD [address] [place] [address] PCP - General director life sciences 02/16/14 03/30/20 Willam Robertson MD [address] [place] [address] PCP - Assigned PCP 08/19/16 07/08/18 Josias Portillo MD [facility] [address] [facility] [address] [facility] [address] [address] PCP - General Internal Medicine 03/31/20 Willam Robertson [facility] [address] [place] [address] Assigned PCP 08/19/16 02/21/19 Maria Esther Guzman MD Assigned PCP 02/22/19 05/23/19 Willam Robertson MD [address] [place] [address] [address] Assigned PCP 05/24/19 07/11/19 Maria Esther Guzman MD Assigned PCP 07/12/19 08/15/19 documented as of this encounter
--- OUTSIDE RECORDS SUMMARY | 2024-09-18 00:23 | XMS_ITS | CCD ---
Author Name Interface, [id number] lity Address [address] [place] [address] [facility] Address [address] [place] [address] Care Team Providers Care Bowling Ball Weigher And Packer Name Role Phone Shree Morillo Unavailable Unavailable Allergies and Adverse Reactions Reason for Visit Encounters Medications Problems Social History
--- OUTSIDE RECORDS SUMMARY | 2024-09-18 00:24 | XMS_ITS ---
Author Name Interface, [id number] lity Address [address] [facility] [address] [address] Organization [facility] Address [address] [facility] [address] [address] Care Team Providers Care Rn Hematology Name Role Phone Shree Morillo Unavailable Unavailable Allergies and Adverse Reactions Medication/Group Name Reaction Severity Date No known allergies Plan Date Type Value 04/25/2020 APPOINTMENT GRANULATOR OPERATOR - 66 DISPLACE D RIBS, CT FV - 66 DISPLACED RIBS, CT FV 04/25/2020 APPOINTMENT GRANULATOR OPERATOR - 66 DISPLACE D RIBS - 66 DISPLACED RIBS Reason for Visit GRANULATOR OPERATOR - 66 DISPLACED RIBS - 66 DISPLACED [...]
[2024-09-18 00:25] LABS: Slide Review Reflex No
[2024-09-18 00:28] LABS: Chloride* 103 mmol/L (96-114); Sodium* 141 mmol/L (135-149)
[2024-09-18 00:30] LABS: Alanine Aminotransferase* 19 U/L (4-35); Alkaline Phosphatase* 49 U/L (40-150); Anion Gap 11 mEq/L (7-15); Aspartate Amino Transferase* 29 U/L (12-35); Bilirubin Total* 0.7 mg/dL (0.1-1.5); Blood Urea Nitrogen* 19 mg/dL (7-30); Carbon Dioxide* 27 mmol/L (20-32); Creatinine* 0.9 mg/dL (0.5-1.5); Est. Creatinine Clearance* 60.56; Estimated Glomerular Filt Rate 74 ml/min
[2024-09-18 00:31] LABS: Calcium* 9.8 mg/dL (8.4-10.6); Glucose* 119 mg/dL (60-115); Lipase* 77 U/L (23-300); Total Protein* 7.9 g/dL (6.0-8.3)
[2024-09-18 01:10] VITALS: BP 154/74; PULSE 90; RESP 18; TEMP 36.9; O2SAT 97
[2024-09-18 01:17] VITALS: BP 154/74; PULSE 90; RESP 18; TEMP 36.9
== END 2024-09-18 01:17 | disposition home or self-care (01) ==
PROVIDERS: Emergency Provider Internal Medicine; PCP Internal Medicine
DX: R10.9 Unspecified abdominal pain (principal); Z79.899 Other long term (current) drug therapy
CPT/HCPCS: 36415; 74177; 80053; 81001; 81003; 83690; 85025; 87086; 99283; 99284; 99285; Q9967